=== PATIENT | female | born 1970 | race Caucasian/White ===

== ENCOUNTER → 2018-01-12 | Outpatient (CLI) | payer BC ==
--- NOTE | 2018-01-12 10:10 | CT ---
EXAMINATION TYPE: CT brain wo con DATE OF EXAM: 01/12/2018 COMPARISON: None HISTORY: headache CT DLP: [address] of the brain was performed. The ventricles, basal cisterns and sulci overlying the cerebral convexities demonstrate a normal appe arance. There is no evidence for intracranial hemorrhage or sulcal effacement. No mass effects are seen. Osseous calvarium is intact. If symptoms persist consider MRI as clinically warranted. IMPRESSION: 1. No acute intracranial process is seen at this time.
--- NOTE | 2018-01-12 10:25 | XR ---
EXAMINATION TYPE: XR chest 2V DATE OF EXAM: 01/12/2018 COMPARISON: NONE TECHNIQUE: PA and lateral views submitted. HISTORY: Headaches FINDINGS: The lungs are clear and there is no pneumothorax, pleural effusion, or focal pneumonia. No overt fa ilure. Hypertrophic change of the spine. IMPRESSION: 1. No acute process.
== END | disposition home or self-care (01) ==
LOC: RADCTMAIN 09:41
PROVIDERS: ATTEND Physician Assistant
DX: R07.89 Other chest pain (principal); R51 Headache
CPT/HCPCS: 70450; 71046

== ENCOUNTER → 2018-02-04 | Outpatient (CLI) | payer BC ==
[2018-02-04 09:33] LABS: HCT 43.9 % (34.0-46.0); HGB 14.9 gm/dL (11.4-16.0); MCH 31.2 pg (25.0-35.0); MCHC 33.9 g/dL (31.0-37.0); MCV 92.2 fL (80.0-100.0); Platelet Count 274 k/uL (150-450); RBC 4.75 m/uL (3.80-5.40); RDW 12.9 % (11.5-15.5); WBC 8.3 k/uL (3.8-10.6)
[2018-02-04 09:36] LABS: Appearance,Urine Clear (Clear); Bilirubin,Urine Negative (Negative); Blood,Urine Negative (Negative); Color,Urine Yellow; Glucose,Urine (UA) Negative (Negative); Ketones,Urine Negative (Negative); Leukocyte Esterase,Urine Negative (Negative); Nitrite,Urine Negative (Negative); Protein,Urine Negative (Negative); Specific Gravity,Urine 1.014 (1.001-1.035); Urobilinogen,Urine <2.0 mg/dL (<2.0)
[2018-02-04 09:51] LABS: ALT 35 U/L (9-52); AST 25 U/L (14-36); Albumin 4.3 g/dL (3.5-5.0); Alkaline Phosphatase 61 U/L (38-126); Anion Gap 11 mmol/L; Blood Urea Nitrogen 15 mg/dL (7-17); Calcium 9.3 mg/dL (8.4-10.2); Carbon Dioxide 23 mmol/L (22-30); Chloride 105 mmol/L (98-107); Cholesterol 231 mg/dL (<200); Glucose 88 mg/dL (74-99); HDL Cholesterol 48 mg/dL (40-60); LDL Cholesterol,Calculated 155 mg/dL (0-99); Potassium 4.7 mmol/L (3.5-5.1); Sodium 139 mmol/L (137-145); Total Bilirubin 0.8 mg/dL (0.2-1.3); Total Protein 7.4 g/dL (6.3-8.2); Triglycerides 142 mg/dL (<150)
== END | disposition home or self-care (01) ==
LOC: LABWHC1 08:04
PROVIDERS: ATTEND Family Medicine
DX: Z00.00 Encounter for general adult medical examination without abnormal findings (principal)
CPT/HCPCS: 36415; 80053; 80061; 81003; 85027

== ENCOUNTER → 2018-03-16 | Outpatient (CLI) | payer BC ==
--- NOTE | 2018-03-16 23:04 | US ---
EXAMINATION TYPE: US axilla RT DATE OF EXAM: 03/16/2018 COMPARISON: Correlation patient's old mammograms CLINICAL HISTORY: 47-year-old female [id number] BREAST LUMP/MASS,RIGHT AXILLARY MASS R22.3. Patient had scre ening mammogram today; also has right axillary skin outpouching x 1 year Technique: Multiple sonographic images of the right axilla at the site of patient's lump. FINDINGS: No solid or cystic mass is seen within the prominent adipose tissues imaged throughout right axilla. No axillary lymphadenopathy seen. IMPRESSION: Targeted scanning of the right axilla shows prominent adipose soft tissues. No discrete solid or cyst ic lesion is seen within the adipose tissues. The area can be reimaged if any growth is noted. Altern atively, surgical consultation can be considered to assess if the site of concern corresponds to a pino spicious palpable abnormality which warrants close clinical follow-up or palpation guided biopsy. Cor relate with findings on screening mammogram.
== END | disposition home or self-care (01) ==
LOC: RADUSWWP 13:33
PROVIDERS: ATTEND Obstetrics & Gynecology
DX: R22.31 Localized swelling, mass and lump, right upper limb (principal); N63.10 Unspecified lump in the right breast, unspecified quadrant

== ENCOUNTER → 2018-03-16 | Outpatient (CLI) | payer BC ==
--- NOTE | 2018-03-17 13:31 | MM ---
Reason for exam: screening (asymptomatic). Last mammogram was performed 2 years and 2 months ago. History: Reductions of both breasts, March 24, 2007. Took hormonal contraceptives for 1 year 3 months beginning at age 33. Physical Findings: A clinical breast exam by your physician is recommended on an annual basis and results should be correlated with mammographic findings. MG Screening Mammo w CAD Bilateral CC and MLO view(s) were taken. Prior study comparison: January 23, 2016, bilateral MG screening mammo w CAD. November 21, 2014, bilateral MG diagnostic mammo w CAD [facility]. The breast tissue is heterogeneously dense. This may lower the sensitivity of mammography. There are benign appearing round calcifications bilaterally. There is no discrete abnormality. ASSESSMENT: Benign, BI-RAD 2 RECOMMENDATION: Routine screening mammogram of both breasts in 1 year.
== END ==
LOC: RADMAMWWP 13:24
PROVIDERS: ATTEND Family Medicine
DX: Z12.31 Encounter for screening mammogram for malignant neoplasm of breast (principal)
CPT/HCPCS: 77067

== ENCOUNTER → 2019-09-23 | Outpatient (CLI) | payer BC ==
--- NOTE | 2019-09-28 09:04 | MM ---
Reason for exam: screening (asymptomatic). Last mammogram was performed 1 year and 6 months ago. History: Reductions of both breasts, March 24, 2007. Took hormonal contraceptives for 1 year 3 months beginning at age 33. Physical Findings: A clinical breast exam by your physician is recommended on an annual basis and results should be correlated with mammographic findings. MG Screening Mammo w CAD Bilateral CC and MLO view(s) were taken. Prior study comparison: March 16, 2018, bilateral MG screening mammo w CAD. January 23, 2016, bilateral MG screening mammo w CAD. November 21, 2014, bilateral MG diagnostic mammo w CAD [facility]. The breast tissue is heterogeneously dense. This may lower the sensitivity of mammography. Dense tissues in the posterior upper outer quadrants on a background of scattered density. No significant changes when compared with prior studies. ASSESSMENT: Negative, BI-RAD 1 RECOMMENDATION: Routine screening mammogram of both breasts in 1 year.
== END | disposition home or self-care (01) ==
LOC: RADMAMWWP 16:12
PROVIDERS: ATTEND Obstetrics & Gynecology
DX: Z12.31 Encounter for screening mammogram for malignant neoplasm of breast (principal)
CPT/HCPCS: 77067

== ENCOUNTER → 2022-05-09 | Outpatient (CLI) | payer BC ==
--- NOTE | 2022-05-10 08:28 | MM ---
Reason for Exam: Screening (asymptomatic). Last mammogram was performed 2 year(s) and 8 month(s) ago. Patient History: Menarche at age 13. First Full-Term at age 32. Late child-bearing (after 32). Hormonal Contraceptives, starting at age 33 for 13 years, 3 months. 03/24/2007, Bilateral Reduction. Risk Values: Shanti 5 year model risk: 1.4%. NCI Lifetime model risk: 13.4%. Prior Study Comparison: 01/23/2016 Bilateral Screening Mammogram, [facility]. 03/16/2018 Bilateral Screening Mammogram, [facility]. 09/23/2019 Bilateral Screening Mammogram, [facility]. Tissue Density: The breast tissue is heterogeneously dense. This may lower the sensitivity of mammography. Findings: Analyzed By CAD. There is no suspicious group of microcalcifications or new suspicious mass in either breast. Overall Assessment: Negative, BI-RAD 1 Management: Screening Mammogram of both breasts in 1 year. A clinical breast exam by your physician is recommended on an annual basis and results should be correlated with mammographic findings. Electronically signed and approved by: Bryant Ortega D.O.
== END | disposition home or self-care (01) ==
LOC: RADMAMWWP 08:10
PROVIDERS: ATTEND Family Medicine
DX: Z12.31 Encounter for screening mammogram for malignant neoplasm of breast (principal)
CPT/HCPCS: 77067

== ENCOUNTER → 2024-08-05 | Outpatient (CLI) | payer BC ==
--- NOTE | 2024-08-05 15:35 | MM ---
Reason for Exam: Screening (asymptomatic). Last mammogram was performed 2 year(s) and 3 month(s) ago. Patient History: Menarche at age 13. First Full-Term at age 32. Late child-bearing (after 32). Hormonal Contraceptives, starting at age 33 for 13 years, 3 months. 2007, Bilateral Reduction. Risk Values: Shanti 5 year model risk: 1.6%. NCI Lifetime model risk: 12.8%. Prior Study Comparison: 03/16/2018 Bilateral Screening Mammogram, [facility]. 09/23/2019 Bilateral Screening Mammogram, [facility]. 05/09/2022 Bilateral MG screening mammo w CAD, [facility]. Tissue Density: There are scattered areas of fibroglandular density. Findings: Analyzed By CAD. Global asymmetries posterior upper outer quadrant both breasts remain unchanged. Asymmetric density superior right MLO view middle depth remains unchanged. There is no suspicious group of microcalcifications or new suspicious mass in either breast. Overall Assessment: Benign, BI-RAD 2 Management: Screening Mammogram of both breasts in 1 year. Patient should continue monthly self-breast exams. A clinical breast exam by your physician is recommended on an annual basis. This exam should not preclude additional follow-up of suspicious palpable abnormalities. Note on Shanti scores and lifetime risk: 1. A Shanti score greater than 3% is considered moderate risk. If this is the case, consider specialist referral to assess eligibility for a risk reducing agent. 2. If overall lifetime risk for the development of breast cancer is 20% or higher, the patient may qualify for future screening with alternating mammogram and breast MRI. [facility], , 08/05/2024 3:33 PM. Electronically signed and approved by: Greg Coulter M.D. Radiologist
== END | disposition home or self-care (01) ==
LOC: RADMAMWWP 10:11
PROVIDERS: ATTEND Family Medicine
DX: Z12.31 Encounter for screening mammogram for malignant neoplasm of breast (principal); R92.323 Mammographic fibroglandular density, bilateral breasts; Z92.0 Personal history of contraception
CPT/HCPCS: 77067